=== PATIENT | male | born 1975 | race African-American/Black ===

== ENCOUNTER 2020-03-27 17:36 | Emergency (ER) | payer MEDICARE, MEDICAID ==
[~2020-03-27] VITALS: Ht 190.5 cm; Wt 122.5 kg
[2020-03-27] MEDS ORDERED: SODIUM CHLORIDE 0.9% 1,000 ML IV ONE ×2 (18:13→20:30)
[2020-03-27] MEDS ORDERED: LORazepam 2MG/ML-1ML VIAL IV ONE (18:15)
[2020-03-27] MEDS ORDERED: ACETAMINOPHEN 500 MG TAB PO ONE ×2 (18:20→19:00)
[2020-03-27] MEDS ORDERED: AZITHROMYCIN 500MG/ 250ML 250 ML IV ONE (18:30)
[2020-03-27 21:10] VITALS: BP 115/74
== END 2020-03-27 22:06 | disposition home or self-care (01) ==
LOC: ER 17:36
DX: J02.9 Acute pharyngitis, unspecified (principal); F41.9 Anxiety disorder, unspecified; I10 Essential (primary) hypertension; Z20.828 Contact with and (suspected) exposure to other viral communicable diseases
CPT/HCPCS: 71045; 87635; 87804; 87880; 96365; 96366; 96375; 99284; J0456; J2060

== ENCOUNTER 2022-06-11 01:55 | Emergency (ER) | payer BC, OTHER ==
[~2022-06-11] VITALS: Ht 188 cm; Wt 111.1 kg
[2022-06-11 02:31] LABS: Basophils # (auto) 0.1 10 ^3/uL (0-0.2); Basophils % (auto) 0.8 % (0.0-2.0); Eosinophils # (auto) 0.1 10 ^3/uL (0-0.8); Eosinophils % (auto) 0.7 % (0.0-7.0); Hematocrit 44.6 % (41.0-53.0); Hemoglobin 15.1 g/dL (13.5-17.5); Lymphocytes # (auto) 3.4 10 ^3/uL (0.4-5.4); Lymphocytes % (auto) 35.9 % (10.0-50.0); Mean Corpuscular Hemoglobin 28.6 pg (28.0-32.0); Mean Corpuscular Hgb Conc. 33.9 g/dL (32.0-36.0); Mean Corpuscular Volume 84.4 fL (80.0-100.0); Monocytes # (auto) 0.7 10 ^3/uL (0-1.3); Monocytes % (auto) 7.4 % (0.0-12.0); Neutrophils # (auto) 5.2 10 ^3/uL (1.6-8.6); Neutrophils % (auto) 55.2 % (37.0-80.0); Nucleated Red Blood Cells % 0.2 %; Red Blood Cells 5.29 10^6/uL (4.5-5.90); Red Cell Distribution Width 14.3 % (11.8-14.3); White Blood Cell 9.4 10^3/uL (4.4-10.8)
[2022-06-11 02:49] LABS: Albumin 3.8 g/dL (3.4-5.0); BUN/Creatinine Ratio 11.1; Calcium 9.2 mg/dL (8.5-10.1); Potassium 3.9 mmol/L (3.5-5.1)
[2022-06-11 02:52] LABS: Bilirubin, Total 0.3 mg/dL (0.2-1.0)
[2022-06-11] MEDS ORDERED: PANT40TA2 PO (08:01)
[2022-06-11 08:11] VITALS: BP 122/79
== END 2022-06-11 08:13 | disposition home or self-care (01) ==
LOC: ER 01:55
DX: R07.89 Other chest pain (principal); I10 Essential (primary) hypertension
CPT/HCPCS: 36415; 80053; 84484; 85025; 93005

== ENCOUNTER 2022-10-12 04:08 | Emergency (ER) | payer BC, OTHER ==
[~2022-10-12] VITALS: Ht 188 cm; Wt 115.9 kg
[~2022-10-12 04:08] MED LIST: PANT40TA2 PO
[2022-10-12 04:31] VITALS: BP 147/94
== END 2022-10-12 07:32 | disposition left against medical advice (07) ==
LOC: ER 04:08
DX: I10 Essential (primary) hypertension (principal); Z53.21 Procedure and treatment not carried out due to patient leaving prior to being seen by health care provider